=== PATIENT | female | born 1990 | race Caucasian/White ===

== ENCOUNTER 2016-09-04 17:33 | Emergency (ER) | payer MEDICAID ==
[~2016-09-04] VITALS: Ht 152.4 cm; Wt 104.3 kg
[2016-09-04 17:40] VITALS: BP 152/94
--- NOTE | 2016-09-04 23:46 | NUR ---
TO ER BED 5
--- NOTE | 2016-09-04 23:46 | NUR ---
PLACED IN BED 5. HERE FOR CHEST AND UPPER BACK PAIN. DENIES ANY OTHER SYMPTOMS. Addendum: 09/05/16 at 0012 by [id number] ALSO COMPLAINS OF COUGH X 1 MONTH.
--- NOTE | 2016-09-04 23:50 | NUR ---
WENT FOR CXR VIA WHEELCHAIR.
--- NOTE | 2016-09-04 23:57 | NUR ---
BACK FROM X-RAY.
--- NOTE | 2016-09-05 00:05 | NUR ---
MD CAME AT BEDSIDE TO EVALUATE PT.
[2016-09-05] MEDS ORDERED: traMADol 50 MG TAB PO ONE (00:15)
[2016-09-05] MEDS ORDERED: IBUPROFEN 800 MG TAB PO ONE (00:20)
--- NOTE | 2016-09-05 00:52 | NUR ---
MOTRIN 800 MG PO GIVEN ORDERED.
--- NOTE | 2016-09-05 01:00 | NUR ---
Patient discharged with v/s stable. Written and verbal after care instructions given and explained. Patient alert, oriented and verbalized understanding of instructions. Ambulatory with steady gait. All questions addressed prior to discharge. ID band removed. Patient advised to follow up with PMD. Rx of TRAMADOL HCL,AZITHROMYCIN AND DEXTROMETHORPHAN/PROMETHAZINE given. Patient educated on indication of medication including possible reaction and side effects. Opportunity to ask questions provided and answered.
[2016-09-05 01:01] VITALS: BP 148/84
== END 2016-09-05 01:00 | disposition home or self-care (01) ==
LOC: MED 17:33
DX: J20.9 Acute bronchitis, unspecified (principal); R03.0 Elevated blood-pressure reading, without diagnosis of hypertension; J02.9 Acute pharyngitis, unspecified; J45.909 Unspecified asthma, uncomplicated

== ENCOUNTER 2022-07-14 23:35 | Emergency (ER) | payer BC, MEDICAID ==
[~2022-07-14] VITALS: Ht 152.4 cm; Wt 111.1 kg
[2022-07-15 00:10] VITALS: BP 163/99
--- NOTE | 2022-07-15 00:13 | NUR ---
TO [facility] A/W BED AMBULATORY
[2022-07-15] MEDS ORDERED: KETOROLAC 15 MG/ML VIAL IM ONE (01:15)
[2022-07-15] MEDS ORDERED: IBUP-2213 PO (01:18)
[2022-07-15] MEDS ORDERED: AMOX-1230 PO (01:18)
[2022-07-15 02:00] VITALS: BP 163/99
--- NOTE | 2022-07-15 02:00 | NUR ---
Patient discharged with v/s stable. Written and verbal after care instructions given and explained. Patient alert, oriented and verbalized understanding of instructions. Ambulatory with steady gait. All questions addressed prior to discharge. ID band removed. Patient advised to follow up with PMD. Rx of AMOX-CLAV, IBUPROFEN given. Patient educated on indication of medication including possible reaction and side effects. Opportunity to ask questions provided and answered.
== END 2022-07-15 02:00 | disposition home or self-care (01) ==
LOC: MED 23:35
DX: K04.7 Periapical abscess without sinus (principal); R51.9 Headache, unspecified
CPT/HCPCS: 96372; 99283; J1885